=== PATIENT | male | born 1990 | race Caucasian/White ===

== ENCOUNTER 2021-08-22 10:43 | Emergency (ER) | payer SELFPAY ==
[~2021-08-22] VITALS: Ht 180.3 cm; Wt 77.3 kg
[2021-08-22 10:53] VITALS: BP 97/62
[2021-08-22] MEDS ORDERED: LIDOCAINE 1% Multi-Dose 20 ML VIAL. IJ ONE (11:00)
--- NOTE | 2021-08-22 11:36 | PHYS DOC ---
Past History Past Surgical History: No Surgical History Alcohol Use: None General Adult EDM: Chief Complaint: LACERATION/AVULSION HPI: HPI: Patient is a 31-year-old male who presents to the emergency department today for a laceration to his left index finger that occurred when he was trying to cut a hole in something and his knife slipped and cut his finger. He denies any d ecreased sensation or decreased range of motion in his finger. He reports that his vaccines are up-to-date. Review of Systems: Review of Systems: Musculoskeletal: see HPI Integumen see HPI Neurologic: see HPI Current Medications: Current Meds: Current Medications Medications (Trade) Dose Ordered Sig/Kendell Start Time Stop Time Status Last Admin Dose Admin Lidocaine HCl 20 ml 1X ONCE 08/22/21 11:00 08/22/21 11:10 DC Allergies: Allergies: Allergies Coded Allergies Type Severity Reaction Last Updated Verified No Known Drug Allergies 08/22/21 No Physical Exam: PE: Constitutional: Well developed, well nourished, no acute distress, non-toxic appearance. [] HENT: Normocephalic, atraumatic, bilateral external ears normal, oropharynx moist, no oral exudates, nose normal. [] Eyes: PERRL, EOMI, conjunctiva normal, no discharge. [] Neck: Normal range of motion, , no stridor. [] Cardiovascular:normal peripheral perfusion Lungs & Thorax: normal WOB, no tachypnea Abdomen: soft and flat Skin: Warm, dry, no erythema, no rash. [] Back: No tenderness, normal ROM Extremities: No tenderness, no cyanosis, no clubbing, ROM intact, no edema. [] L. 2nd finger: 3.5cm laceration noted to finger with active bleeding, no tendon involvement, ROM intact, neuro intact, no visible foreign bodies. Neurologic: Alert and oriented X 3, normal motor function, normal sensory function, no focal deficits noted. [] Psychologic: Affect normal, judgement normal, mood normal. [] Current Patient Data: Vital Signs: Vital Signs Date Time Temp Pulse Resp B/P (MAP) Pulse Ox O2 Delivery O2 Flow Rate FiO2 08/22/21 10:53 84 18 97/62 (74) 100 EKG: EKG: [] Radiology/Procedures: Radiology/Procedures: [] Heart Score: C/O Chest Pain: N/A Risk Factors: Risk Factors: DM, Current or recent (<one month) smoker, HTN, HLP, family history of CAD, obesity. Risk Scores: Score 0 - 3: 2.5% MACE over next 6 weeks - Discharge Home Score 4 - 6: 20.3% MACE over next 6 weeks - Admit for Clinical Observation Score 7 - 10: 72.7% MACE over next 6 weeks - Early Invasive Strategies Course & Med Decision Making: Course & Med Decision Making Pertinent Labs and Imaging studies reviewed. (See chart for details) [] Patient presents to the emergency department for a laceration to his left second finger that occurred when his knife slipped while he was cutting something. Patient's tetanus shot is up-to-date. Wound was cleansed in the emergency department with sterile saline and was cleansed with Betadine. Laceration repair was performed. No visible foreign bodies no tendon involvement, range of motion intact, neuro intact patient tolerated procedure. Patient educated on laceration care and suture removal. Dressing and aluminum finger splint placed. I discussed with patient all findings and diagnostic testing as well as the need to follow-up with PCP for further evaluation and treatment or return to the ER if any new or worsening symptoms. Strict return precautions were also discussed at length. Patient voiced understanding and agreement with the plan. Patient is hemodynamically stable at the time of disposition. Marii Disclaimer: Marii Disclaimer: This electronic medical record was generated, in whole or in part, using a voice recognition dictation system. Laceration Repair Lac Repair Time:1100 Confirmed: Patient, procedure, site, and site correct Consent: Patient has given verbal consent Laceration location: l. 2nd finger proximal to DIP joint Shape: curved Depth: with subcut involvment Details: Clean with no foreign material Neurovascular, tendon exam: Intact Anesthesia:1 % lidocaine Preparation: Sterile field established Irrigation: Wound irrigated with sterile saline Skin closure: Simple interrupted sutures placed Size of suture: 6-0 ethilon Number of sutures: 7 Complexity: Single layer Post procedure exam: Circulation, motor, sensory exam intact, bleeding controlled. Complications: None Patient tolerated: Well Performed by: self Total time: 20 min Departure Departure: Impression: Primary Impression: Laceration Disposition: HOME / SELF CARE / HOMELESS Condition: GOOD Referrals: PCP,UNKNOWN (PCP) Patient Instructions: Laceration Care, Adult Additional Instructions: You were seen in the emergency department today for a laceration. This was re paired in the emergency department with sutures. Please keep the area clean and dry and wash with mild soap and warm water. You can apply Polysporin or triple antibiotic ointment to the site and keep a dressing in place. Wear the aluminum finger splint for stabilization. You can take Tylenol and ibuprofen at home for any pain. You can go to your primary care provider or return to the emergency department to have your sutures removed in 7 to 10 days. Monitor for any signs of infection which include redness, warmth, swelling or drainage. If you develop any of the signs of infection, high fevers refractory to treatment, intractable nausea or vomiting, decreased range of motion or decrease sensation in your finger please return to the emergency department. MARY BROUSSARD THERAPY MANAGER August 22, 2021 11:36
== END 2021-08-22 11:49 | disposition home or self-care (01) ==
LOC: ER 10:43
DX: S61.211A Laceration without foreign body of left index finger without damage to nail, initial encounter (principal); W26.0XXA Contact with knife, initial encounter; Y93.89 Activity, other specified; Y92.89 Other specified places as the place of occurrence of the external cause; Y99.8 Other external cause status
CPT/HCPCS: 12001; 12002; 99282